=== PATIENT | male | born 1995 | race African-American/Black ===

== ENCOUNTER 2019-11-29 16:22 | Emergency (ER) | payer MEDICAID ==
[~2019-11-29] VITALS: Ht 180.3 cm; Wt 81.0 kg
[2019-11-29] MEDS ORDERED: ALBU18HF2 IH (16:35)
[2019-11-29] MEDS ORDERED: SODIUM CHLORIDE 0.9% 1,000 ML IV ONE (17:16)
[2019-11-29 17:42] LABS: BASOPHILS % 0.4 % (0.0-2.0); EOSINOPHILS % 1.5 % (0.0-5.0); HEMATOCRIT. 41.3 % (42.0-52.0); HEMOGLOBIN. 14.3 g/dL (14.0-18.0); LYMPHOCYTES % 20.5 % (20.0-50.0); MEAN CORPUSCULAR HEMOGLOBIN 32.7 pg (28.0-32.0); MEAN PLATELET VOLUME 9.7 fl (7.4-10.4); MONOCYTES % 11.9 % (2.0-8.0); NEUTROPHILS % 65.7 % (40.0-76.0); PLATELET 179 x1000/uL (130-400); RED BLOOD CELL COUNT 4.39 mill/uL (4.7-6.1); RED CELL DISTRIBUTION WIDTH 13.6 % (11.6-14.6)
[2019-11-29 17:48] LABS: CHLORIDE 103 mEq/L (98-107)
[2019-11-29 17:49] LABS: PROTHROMBIN TIME 11.1 sec (9.6-11.0)
[2019-11-29] MEDS: MORPHINE SULFATE 2 MG/ML CPJ (NOT FOR IM USE) IV PRN (20:14)
[2019-11-29] MEDS: DEXT 5%/LACTATED RINGERS 1,000 ML IV SCH (20:25)
[2019-11-30] MEDS: MORPHINE SULFATE 2 MG/ML CPJ (NOT FOR IM USE) IV PRN ×5 (00:12→14:45)
[2019-11-30 01:02] LABS: *AMPHETAMINES SCREEN URINE NEGATIVE (NEGATIVE); *BARBITURATES SCREEN URINE NEGATIVE (NEGATIVE)
[2019-11-30 01:03] LABS: *BENZODIAZEPINES SCREEN URINE NEGATIVE (NEGATIVE); *COCAINE SCREEN URINE NEGATIVE (NEGATIVE); CANNABINOID URINE SCREEN PRESUMTIVE POSITIVE (NEGATIVE); METHADONE URINE SCREEN NEGATIVE (NEGATIVE); OPIATES URINE SCREEN NEGATIVE (NEGATIVE); PHENCYCLIDINE URINE SCREEN NEGATIVE (NEGATIVE)
[2019-11-30] MEDS ORDERED: PANTOPRAZOLE SODIUM 40 MG/VIAL IV SCH (09:00)
[2019-11-30] MEDS: DEXT 5%/LACTATED RINGERS 1,000 ML IV SCH (12:10)
[2019-11-30] MEDS ORDERED: HYDR-4001 MT (13:03)
[2019-11-30] MEDS ORDERED: ACETAMINOPHEN 325MG TABLET PO PRN (16:45)
[2019-11-30 20:00] VITALS: BP 114/52
== END 2019-11-30 23:50 | disposition left against medical advice (07) ==
LOC: ER 16:22 → MICUSO 19:50 → UNDOADMIN 19:50
DX: S02.119A Unspecified fracture of occiput, initial encounter for closed fracture (principal); J45.909 Unspecified asthma, uncomplicated; F12.10 Cannabis abuse, uncomplicated; R55 Syncope and collapse; W18.39XA Other fall on same level, initial encounter; Y93.89 Activity, other specified; Y92.89 Other specified places as the place of occurrence of the external cause; Y99.8 Other external cause status
CPT/HCPCS: 36415; 70450; 72125; 80053; 80305; 85025; 85610; 93005; 96374; 99291; C9113; J2270; J7030